=== PATIENT | female | born 1925 | race Caucasian/White ===

== ENCOUNTER 2016-09-29 06:49 | Day surgery (SDC) | payer MEDICARE ==
[~2016-09-29] VITALS: Ht 153.7 cm; Wt 44.9 kg
[2016-09-29] VITALS (24 sets, daily range): BP systolic 117–175; BP diastolic 62–89; PULSE 60–83; RESP 12–22; TEMP 97.4–97.9; O2SAT 90–97; Ht 153.7 cm; Wt 44.9 kg
[~2016-09-29 06:49] MED LIST: AMIL5TAB12 PO; AMLO2.5T PO; BUPR75TA8 PO; CLOP75TA33 PO; DIAZ5TAB4 PO; METO50TA5 PO; SIMV20TA6 PO
--- OUTSIDE RECORDS SUMMARY | 2016-09-29 06:53 | XMS REPORT | CCD ---
Author Author EDIE DIAZ Organization Unknown Address [address], [place] [id number] Phone 0 Care Team Providers Care Salt Miner Name Role Phone YANCYGRAYSON Attending Physician 0 Vital Signs Unknown or Not Available. Allergies Allergy Code Allergy Type Reaction Status SULFA (sulfonamide) 0 Drug allergy Active MACRODANTIN 462485 Drug allergy Active Procedures Unknown or Not Available. History of Immunizations Unknown or Not Available. Problems Unknown or Not Available. Results CULTURE URINE - Collect Date/Time: 06/29/2016 13:50 Test Name Code Test Result Test Units Test Ref Range SPEC SOURCE: RANDOM N/A Urine Culture, Routine 630-4 Final report N/A Active Medications Unknown or Not Available. Medications Administered During Visit Unknown or Not Available. Encounters Unknown or Not Available. Social History Smoking Status Code Start Date End Date Never smoker [id number] Patient Decision Aids Unknown or Not Available. Discharge Instructions You were admitted to [facility] on 06/29/2016 14:16 You had the following tests done: CULTURE URINE You were discharged from [facility] on 06/29/2016 14:16 Should you have any questions prior to discharge, please contact a member of your healthcare team. If you have left the hospital and have any questions, please contact your primary care physician. Chief Complaint and Reason For Visit Chief Complaint Date of Onset LAB Function Status Unknown or Not Available. Plan of Care Unknown or Not Available. Referral/Transition of Care Unknown or Not Available.
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
--- OUTSIDE RECORDS SUMMARY | 2016-09-29 06:54 | XMS REPORT | CCD ---
Author Author EDIE DIAZ Organization Unknown Address [address], [place] [id number] Phone 0 Care Team Providers Care Jackerman Name Role Phone RD CAZARES Attending Physician [phone] Vital Signs Unknown or Not Available. Allergies Allergy Code Allergy Type Reaction Status SULFA (sulfonamide) 0 Drug allergy Active MACRODANTIN 400383 Drug allergy Active Procedures Unknown or Not Available. History of Immunizations Unknown or Not Available. Problems Unknown or Not Available. Results Unknown or Not Available. Active Medications Unknown or Not Available. Medications Administered During Visit Unknown or Not Available. Encounters Encounter Diagnosis Diagnosis Code Start Date Pain in left knee [id number] 12/25/2015 Social History Smoking Status Code Start Date End Date Never smoker [id number] Patient Decision Aids Unknown or Not Available. Discharge Instructions You were admitted to [facility] on 12/25/2015 10:43 with a principal diagnosis of Pain in left knee You were discharged from [facility] on 12/25/2015 10:43 Should you have any questions prior to discharge, please contact a member of your healthcare team. If you have left the hospital and have any questions, please contact your primary care physician. Chief Complaint and Reason For Visit Chief Complaint Date of Onset XR LT KNEE Function Status Unknown or Not Available. Plan of Care Unknown or Not Available. Referral/Transition of Care Unknown or Not Available.
--- OUTSIDE RECORDS SUMMARY | 2016-09-29 06:54 | XMS REPORT | Referral Summary ---
Author Author [facility] Organization [facility] Address Unknown Phone Unavailable Care Team Providers Care Stunt Person Name Role Phone No PCP, States Primary Care Physician [phone] Encounter [facility] [id number] Date(s): 01/19/16 - 01/19/16 [facility] [address] [place], [place] [address] Discharge Disposition: 01-Home or Self Care Attending Physician: Kendell Parker MD Admitting Physician: Kendell Parker MD Vital Signs No [...] 0 Refill(s) Start Date: 01/19/16 Status: Ordered [place]-3 D-3 Wellness Pack 0 Refill(s) Start Date: [...]
--- OUTSIDE RECORDS SUMMARY | 2016-09-29 06:54 | XMS REPORT | Continuity of Care Document ---
Author Author [facility] Organization [facility] Address Unknown Phone Unavailable Support Name Relationship Address Phone HECTOR GILLIS MD Caregiver [address] [place] [address] [place] [address] Unavailable ROSARIO CAZARES "RD" Caregiver [address] [place] [address] Unavailable DESTINY VILLEGAS (ALEXEYW) Next Of Kin [address] [facility] [place] [address] Insurance Providers Guarantor Maisha Davidson Address [address] [place] [address] Email DENIED/NO TO PORT Payer Medicare Policy Number [id number] Subscriber's Name Maisha Davidson Relationship 18 Self Effective Date [facility] Policy Number [id number] Subscriber's Name Maisha Davidson Relationship 18 Self Advance Directives Directive Response Recorded Date/Time Ordered Resuscitation Status Full Code 12/12/15 12:57pm Resuscitation Documents on File No 12/15/15 7:52am DPOA for Healthcare Only No 12/15/15 7:52am Living Will No 12/15/15 7:52am Problems No problem information available. Medications Current Home Medications Medication Dose Units Route Directions Days Qty Instructions Start Date Acetaminophen With Codeine (Tylenol With Codeine #3 Tablet) 300-30 Tablet 1-2 Tab Oral Every 6 Hours as needed for Pain 20 Tablet 12/15/15 Amiloride Hcl 5 Mg Tablet 1 Tab Oral Daily 30 12/12/15 Bupropion Hcl 75 Mg Tablet 1 Tab Oral Daily 60 12/12/15 Cephalexin (Keflex) 500 Mg Capsule 500 Mg Oral Daily 1 Capsule 12/22 Diazepam 5 Mg Tablet 2.5 Mg Oral Every 12 Hrs Prn 30 12/12/15 Metoprolol Tartrate 50 Mg Tablet 1 Tab Oral Twice A Day 180 Social History Social History Problem Response Recorded Date/Time Onset Date Status Reason for Hospitalization Excision skin cancer, right zygoma 12/15/2015 11: 00am Not Applicable Not Applicable Chewing Tobacco Status No 12/15/2015 7:57am Not Applicable Not Applicable Hx Substance Use No 12/15/2015 7:57am Not Applicable Not Applicable Hx Alcohol Use No 12/12/2015 9:26am Not Applicable Not Applicable Has the pt used tobacco in the last 12 months No 12/15/2015 7:57am Not Applicable Not Applicable Query Response Start Date Stop Date Smoking Status Former smoker Hospital Discharge Instructions Instructions: Care Instructions: Reason for Hospitalization: Excision skin cancer, right zygoma I was in the hospital because (patient own words): "to get this skin things off " Discharge Diet: Regular Discharge Activity: September shower on December 16September change dressing on December 16 Follow Up Appointments: Follow up with Dr. Gillis on December 22 @ 11:10AM Call the office with any questions or concerns: Pending Lab / Results: No Pending Lab Condition at time of discharge: Good Plan of Care Discharge Date 12/15/15 11:30am Instructions/Education Provided [facility] Prescriptions See Medication Section Functional Status Query Response Date Recorded Ability to complete ADL's impeded by No change December 15, 2015 7:52am Allergies, Adverse Reactions, Alerts Allergen Type Severity Reaction Status Last Updated Nitrofurantoin Allergy Unknown Active 12/15/15 Immunizations Query Response on File Recorded Date/Time Hx Influenza Vaccination Y fall 201412/12/15 9:26am Hx Pneumococcal Vaccination No 12/12/15 9:26am Hx Influenza Vaccination Y fall 201412/12/15 9:26am Vital Signs Acute Vital Signs Vital Response Date/Time Temperature (Fahrenheit) 97.7 deg F (96.8 - 99.1) 12/15/2015 10:42am Temperature (Calculated Celsius) 36.23047 degrees C (36.0 - 37.3) 12/15/2015 10:42am Temperature Source Temporal 12/15/2015 10:42am Pulse Rate (adult) 74 bpm (60 - 100) 12/15/2015 11:25am Respiratory Rate 16 breaths/min (10 - 20) 12/15/2015 11:25am O2 Sat by Pulse Oximetry 95 % (90 - 100) 12/15/2015 11:25am Oxygen Delivery Method Room Air 12/15/2015 9:15am Oxygen Delivery Method Room Air 12/15/2015 11:25am Blood Pressure 138/72 mm Hg 12/15/2015 11:25am Blood Pressure Source Automatic Cuff 12/15/2015 11:25am Height (Feet) 5 feet 12/15/2015 7:46am Height (Inches) 1.00 inches 12/15/2015 7:46am Weight (Kilograms) 48.100 kg 12/15/2015 7:46am Body Mass Index (BMI) 20.0 12/15/2015 7:46am Results No known relevant diagnostic tests, laboratory data and/or discharge summary. Procedures Procedure Status Date Provider(s) Excision of lesion Completed 12/15/15 HECTOR GILLIS MD Encounters Encounter Location Arrival/Admit Date Discharge/Depart Date Attending Provider Departed [facility] 12/15/15 7:23am 12/15/15 11 :30am HECTOR GILLIS MD
--- OUTSIDE RECORDS SUMMARY | 2016-09-29 06:54 | XMS REPORT | Continuity of Care Document ---
Author Author [facility] Address Unknown Phone Unavailable Allergies Active Description Code Type Severity Reaction Onset Reported/Identified Relationship to Patient Clinical Status Yes MACRODANTIN [id number] Drug Allergy N/A N/A Medications Problems Procedures Results Encounters ACCT No. Visit Date/Time Discharge Status Pt. Type Provider Facility Loc./Unit Complaint [id number] 03/24/2016 08:42:54 03/24/2016 08:42:54 DIS Outpatient [id number] 03/12/2016 06:48:08 03/12/2016 06:48:08 Outpatient [id number] 03/12/2016 06:39:53 03/12/2016 06:39:53 Outpatient [id number] 02/25/2016 09:57:33 02/25/2016 09:57:33 DIS Outpatient [id number] 02/24/2016 11:56:41 02/24/2016 11:56:41 DIS Outpatient [id number] 02/24/2016 11:55:22 02/24/2016 11:55:22 DIS Outpatient [id number] 02/24/2016 11:54:19 02/24/2016 11:54:19 DIS Outpatient [id number] 02/24/2016 11:52:31 02/24/2016 11:52:32 DIS Outpatient [id number] 02/24/2016 11:51:32 02/24/2016 11:51:32 DIS Outpatient [id number] 01/19/2016 16:06:15 01/19/2016 16:06:16 DIS Outpatient [id number] 01/19/2016 16:04:38 01/19/2016 16:04:39 DIS Outpatient [id number] 01/19/2016 16:04:26 01/19/2016 16:04:27 DIS Outpatient [id number] 01/19/2016 16:02:53 01/19/2016 16:02:55 DIS Outpatient [id number] 01/19/2016 16:02:40 01/19/2016 16:02:41 DIS Outpatient [id number] 01/19/2016 16:00:47 01/19/2016 16:00:47 DIS Outpatient [id number] 01/19/2016 16:00:46 01/19/2016 16:00:46 DIS Outpatient [id number] 01/19/2016 16:00:45 01/19/2016 16:00:45 DIS Outpatient [id number] 01/19/2016 15:59:59 01/19/2016 16:00:00 DIS Outpatient [id number] 05/19/2016 10:27:05 DIS Outpatient [id number] 03/24/2016 06:32:24 ACT Outpatient [id number] 02/24/2016 13:46:18 DIS Outpatient [id number] 02/24/2016 13:22:02 DIS Outpatient [id number] 02/24/2016 13:21:44 DIS Outpatient [id number] 02/24/2016 13:18:17 DIS Outpatient [id number] 02/24/2016 13:17:26 DIS Outpatient [id number] 02/24/2016 13:17:22 DIS Outpatient [id number] 02/24/2016 12:18:00 Document Registration [id number] 02/24/2016 12:12:05 DIS Outpatient [id number] 02/24/2016 11:55:19 DIS Outpatient [id number] 02/24/2016 11:54:16 DIS Outpatient [id number] 02/23/2016 14:29:18 DIS Outpatient
--- OUTSIDE RECORDS SUMMARY | 2016-09-29 06:54 | XMS REPORT | CCD ---
Author Author EDIE DIAZ Organization Unknown Address [address], [place] [address] Phone 0 Care Team Providers Care Assurance Specialist Name Role Phone RD CAZARES Attending Physician [phone] Vital Signs Unknown or Not Available. Allergies Allergy Code Allergy Type Reaction Status SULFA (sulfonamide) 0 Drug allergy Active MACRODANTIN 771908 Drug allergy Active Procedures Unknown or Not Available. History of Immunizations Unknown or Not Available. Problems Unknown or Not Available. Results Unknown or Not Available. Active Medications Unknown or Not Available. Medications Administered During Visit Unknown or Not Available. Encounters Encounter Diagnosis Diagnosis Code Start Date Unspecified hearing loss, unspecified ear H9190 01/05/2016 Social History Smoking Status Code Start Date End Date Never smoker [id number] Patient Decision Aids Unknown or Not Available. Discharge Instructions You were admitted to [facility] on 01/05/2016 11:22 with a principal diagnosis of Unspecified hearing loss, unspecified ear You were discharged from [facility] on 01/05/2016 11:22 Should you have any questions prior to discharge, please contact a member of your healthcare team. If you have left the hospital and have any questions, please contact your primary care physician. Chief Complaint and Reason For Visit Chief Complaint Date of Onset CT BRAIN Function Status Unknown or Not Available. Plan of Care Unknown or Not Available. Referral/Transition of Care Unknown or Not Available.
[2016-09-29] MEDS ORDERED: LIDOCAINE 1%/EPI 1:100,000 20ml MDV ONE (06:55)
[2016-09-29] MEDS ORDERED: MIDAZOLAM 5mg/5ml INJECTION IV PRN (07:00)
[2016-09-29] MEDS ORDERED: LR 1,000 ML IV SCH (07:00)
[2016-09-29] MEDS ORDERED: LIDOCAINE 1% (10mg/ml) 2ml SDV INJ ONE (07:00)
[2016-09-29] MEDS ORDERED: FENTANYL 100mcg/2ml INJECTION IV PRN (07:00)
[2016-09-29] MEDS ORDERED: CLINDAMYCIN 600mg IVPB 50 ML IV ONE (08:00)
[2016-09-29 08:01] LABS: BASOPHILS % (AUTO) 0.2 % (0-2); EOSINOPHILS # (AUTO) 0.1 T/MM3 (0-0.5); EOSINOPHILS % (AUTO) 0.9 % (0-4); HCT - HEMATOCRIT 40.7 % (36-46); HGB - HEMOGLOBIN 13.3 GM/DL (12-16); IMMATURE GRANULOCYTE # (AUTO) 0.02 T/MM3 (0.00-0.03); IMMATURE GRANULOCYTE % (AUTO) 0.2 % (0.0-0.5); LYMPHOCYTES # (AUTO) 1.3 T/MM3 (1-4.8); LYMPHOCYTES % (AUTO) 15.2 % (23-45); MEAN CORPUSCULAR HGB 30.6 UUG (26-34); MEAN CORPUSCULAR HGB CONC(MCHC 32.7 GM/DL (31-37); MEAN CORPUSCULAR VOLUME 93.8 UM3 (80-100); MEAN PLATELET VOLUME 8.5 UM3 (9.4-12.4); MONOCYTES # (AUTO) 0.6 T/MM3 (0-0.8); MONOCYTES % (AUTO) 7.3 % (0-9.0); NEUTROPHILS #(AUTO)-ABSOLUTE 6.4 T/MM3 (1.8-7.7); NEUTROPHILS % (AUTO) 76.2 % (33-66); RED BLOOD COUNT 4.34 M/MM3 (4.00-5.20); WBC - WHITE BLOOD COUNT 8.5 T/MM3 (4.5-11.0)
--- NOTE | 2016-09-29 08:10 | ANESPREOP ---
Anesthesia Record Date and Time DATE: 09/29/16 TIME: 08:08 Proposed Surgical Procedure MOHS EXCISION NPO since: mn Allergies: Coded Allergies: Penicillins (Verified Allergy, Unknown, 09/28/16) Sulfa (Sulfonamide Antibiotics) (Verified Allergy, Unknown, 09/28/16) lorazepam (Verified Allergy, Unknown, 09/29/16) nitrofurantoin (Verified Allergy, Unknown, 12/15/15) Ht/Wt/BMI Height: 5 ' 0.50 " Weight: 44.900 kg BMI: 19.0 kg/m2 Vital Signs Date Time Temp Pulse Resp B/P Pulse Ox O2 Delivery O2 Flow Rate FiO2 09/29/16 07:22 83 22 175/89 97 Room Air Medications Inpatient Medications Current Medications Medications (Trade) Dose Ordered Sig/Oliva Start Time Stop Time Status Last Admin Dose Admin Lactated Ringer's (Lactated Ringers) 1,000 ml @ 50 mls/hr Q20H 09/29/16 07:00 Midazolam HCl (Versed) VERSED 0.5-3MG IV PUSH ... Q10MIN PRN 09/29/16 07:00 Fentanyl (Fentanyl) FENTANYL 25-50 MCG IV P... PRN PRN 09/29/16 07:00 Amiloride HCl (Amiloride HCl) 5 Mg Tablet, 1 TAB PO DAILY, (Reported) Last Taken: on 09/28/16 0600 Amlodipine Besylate (Amlodipine Besylate) 2.5 Mg Tablet, 1 TAB PO BID, (Reported) Last Taken: on 09/29/16 0600 Bupropion HCl (Bupropion HCl) 75 Mg Tablet, 1 TAB PO DAILY, (Reported) Last Taken: on 09/28/16 Clopidogrel Bisulfate (Clopidogrel) 75 Mg Tablet, 1 TAB PO DAILY, (Reported) Last Taken: on 09/26/16 Diazepam (Diazepam) 5 Mg Tablet, 2.5 MG PO [id number], (Reported) Last Taken: on 09/28/16 Metoprolol Tartrate (Metoprolol Tartrate) 50 Mg Tablet, 1 TAB PO BID, (Reported) Last Taken: on 09/29/16 0600 Simvastatin (Simvastatin) 20 Mg Tablet, 1 TAB PO DAILY, (Reported) Last Taken: on 09/28/16 Currently on Beta Haily: Yes Beta Haily Last Taken: today at 0600 Medical/Surgical History Anesthesia PMH: Reports: *Hypertension, CVA/Stroke/TIA (PER H&P, 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), Cancer (RUSLAN BREAST-MASTECTOMIES, 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), Cardiac Arrythmia (history of A Fib), Clotting Problems (anticoagulated), Pacemaker Smoking Status: Never smoker Use Chewing Tobacco?: No Second Hand Exposure: No Substance Use Type: does not use Substance last used: unknown Last Drink: days (ago), unknown HX of Last Menstrual Period: AGE 52 Past Surgical History Orthopedic Surgeries: No - DENIES Abdominal Surgeries: - RUSLAN ING HERNIA REPAIR Genitourinary Surgeries: Cardiac Surgeries: Yes - PACEMAKER PER H&P Endocrine Surgeries: Reproductive Surgeries: Yes - RUSLAN MASTECTOMIES WITH RECONSTRUCTION AND IMPLANTS Neurological Surgeries: Yes - ANEURYSM REPAIR Ear Surgeries: Nose Surgeries: Throat Surgeries: Other Surgeries: No Anesthesia Adverse Reactions: FOUND none Family Hx of Anesthesia Advers: none Hx of Motion Sickness: No Pertinent Findings Laboratory Tests 09/29/16 07:52 EKG Rhythm: Atrial Fibrillation Physical Exam Respiratory: Lungs clear Cardiovascular: FOUND Regular rate, rhythm Airway Assessment Mallampati Score: II TMD: 3 Fingerbreadths Overall Assessment: No Airway Concerns ASA: 3 Plan Anesthesia Plan: TIVA, LMA, MAC Discussion Discussed risks/options/alternatives of anesthesia and questions answered. Patient consents. Nursing pain assessment noted. Attestation Statement Prior to the delivery of any anesthetic medication, I examined the patient, developed the plan, obtained the patient's consent and discussed the risk and benefits of the procedure with the patient/guardian. ROSARIO AREVALO CRNA September 29, 2016 08:10
--- NOTE | 2016-09-29 09:15 | NUR ---
FAMILY NOTIFIED. FAMILY NOTIFIED THAT WE NEED TO REEXCISE LESION.
[2016-09-29] MEDS ORDERED: MIDAZOLAM 2mg/2ml INJECTION ONE (10:49)
--- NOTE | 2016-09-29 10:50 | NUR ---
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 DR. DAVILA INTO PT ROOM AT 0838. TIME OUT PERFORMED BY Alec WILSON RN AT 0838. DR. DAVILA PREPPED PT WITH 3% CHLOROXYLENOL TO FACE. 1 MG VERSED ND 25MCG FENTANYL GIVEN AT [address] DAVILA ORDER BY PREOP NURSE. 1% LIDOCATINE WITH EPI 1:100,000 INJECTED AT 0843 AND 0917 FOR RE EXCISION. BOVIE IN ROOM AND PLUGGED IN. HIGHEST POWER OUTPUT USED WAS 20. SPECIMENS SENT WERE LABELED 1)RIGHT SUPRATIP LESION SENT FOR FROZEN AT 0846, 2) REEXCISION RIGHT SUPRATIP LESION 12 O CLOCK TO 3 O CLOCK SENT FOR FROZEN AT 0918.
--- NOTE | 2016-09-29 11:16 | PDPROCED ---
Procedure Note Date 09/29/16 Procedure Name Mohs excision BCC right nasal supratip with complex closure: Lesion size 0.5 cm , excision size 1.1 cm with second excision from -3 with final defect 1.7 cm Procedure Detail Preop dx: BCC right nasal supratip Postop dx: Same Anesthesia: MAC EBL: Less than 20 ml Case: Clean Complications: None HECTOR DAVILA MD September 29, 2016 11:15
[2016-09-29] MEDS ORDERED: CLIN-89 PO (11:25)
[2016-09-29] MEDS ORDERED: ACET1TAB12 PO (11:25)
[2016-09-29] MEDS ORDERED: ONDANSETRON 4mg/2ml INJECTION IV PRN (11:30)
[2016-09-29] MEDS ORDERED: ATROPINE 1mg/10ml Syringe IV PRN (11:30)
[2016-09-29] MEDS ORDERED: HYDROCODONE/APAP 5 mg/325 mg TABLET PO PRN (11:30)
--- NOTE | 2016-09-29 12:09 | ANESPO ---
Post-Op Note Date 09/29/16 Time: 12:08 Status Pt Participated in Evaluation: Pt participated in person Vital Signs Date Time Temp Pulse Resp B/P Pulse Ox O2 Delivery O2 Flow Rate FiO2 09/29/16 11:45 75 16 126/68 93 Room Air 09/29/16 11:19 97.4 Respiratory Function: Airway patent, Regular respirations Cardiovascular Function: Regular pulse Mental Status: Alert/oriented Pain Level Intensity: 0 Hydration: Taking po fluids Complications during Recovery None apparent Follow-Up Instructions Instructions Per Surgeon ROSARIO AREVALO CRNA September 29, 2016 12:09
--- NOTE | 2016-09-29 16:15 | OPNOTEF ---
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 OPERATION Mohs excision of basal cell carcinoma of right nasal supratip with complex closure. Lesion size was 0.5 cm, excision size was 1.1 cm with a second excision from 12 to 3 and a final defect of 1.7 cm. SURGEON Azalea Gillis M.D. ANESTHESIA MAC INDICATIONS The patient is an 89-year-old woman who was referred by Dr. Tom Hernandez for evaluation and management of a basal cell carcinoma of her right nasal supratip. Several months ago, the lesion had been treated with cryotherapy. Postprocedure however, the lesion continued to grow and became more erythematous. A shave biopsy was performed on 09/02/2016 revealing a basal cell carcinoma with positive deep margins. The patient does have a basal cell carcinoma of the right zygoma as well. On exam, she had an erythematous and slightly raised lesion of the right nasal supratip. In detailed discussion with the patient and her daughter preoperatively, the risks, benefits and alternatives of Mohs excision of the lesion and closure were reviewed including, but not limited to, bleeding, infection, poor or keloid scarring, residual and/or recurrent disease, possible partial or complete loss of the flap or graft. They understood and wished to proceed. DESCRIPTION OF PROCEDURE The patient was marked preoperatively and then, after suitable IV sedation, the face was prepped and draped in the usual sterile manner. The involved area was then infiltrated with 1% lidocaine with epinephrine. After a wait for hemostasis, the lesion was excised with beveled margins and handed off as a specimen with a tag at the 12 o'clock margin. Subsequent Mohs pathologic evaluation revealed residual tumor at the 1-2 o'clock position. A second resection from 12 to 3 was then performed with clear margins. The patient was then brought to the operating room and again prepped and draped in the usual sterile manner. The area was infiltrated with 1% lidocaine with epinephrine and then widely undermined. At this time, it was deemed advisable to proceed with complex closure. This was then performed with removal of dog ears closure in two layers using interrupted buried sutures of 5-0 Vicryl and interrupted 6-0 nylon. Hemostasis throughout was obtained using the electrocautery. Benzoin and Steri-Strips were applied, as well as a dry sterile dressing and Mefix tape. The patient was then brought to the recovery room in stable condition. Estimated blood loss was less than 20 mL. The case was clean. Specimens: Basal cell carcinoma of the right nasal supratip. MTDD
== END 2016-09-29 12:25 | disposition home or self-care (01) ==
LOC: NSC 06:49
PROVIDERS: ATTEND Surgery Plastic and Reconstructive Surgery
DX: C44.311 Basal cell carcinoma of skin of nose (principal)
CPT/HCPCS: 11642; 13151; 36415; 85025; 85576; 88305; 88331; 88332; J2250; J3010; J7120